=== PATIENT | male | born 1995 | race Caucasian/White ===

== ENCOUNTER 2017-01-29 19:46 | Emergency (ER) | payer BC ==
[~2017-01-29] VITALS: Ht 175.3 cm; Wt 66.0 kg
[2017-01-29] MEDS ORDERED: SODIUM CHLORIDE 0.9% 1,000 ML IV ONE (20:05)
[2017-01-29] MEDS ORDERED: HYDROmorphone 1 MG/ML, 1ML ONE ×2 (20:10→23:19)
[2017-01-29] MEDS ORDERED: ONDANSETRON 2MG/ML, 2ML ONE ×2 (20:10→23:19)
[2017-01-29 20:26] LABS: HEMOGLOBIN 17.1 g/dL (13.7-18.0); WHITE BLOOD COUNT 13.8 x10^3/uL (4.5-13.2)
[2017-01-29] MEDS ORDERED: HYDROmorphone 1 MG/ML, 1ML IVPush PRN (20:30)
[2017-01-29] MEDS ORDERED: ONDANSETRON 2MG/ML, 2ML IVPush ONE (20:30)
[2017-01-29] MEDS ORDERED: SODIUM CHLORIDE 0.9% 1,000ML IVBOLUS ONE (20:30)
[2017-01-29 20:35] LABS: ASPARTATE AMINO TRANSFERASE 22 U/L (15-37); BLOOD UREA NITROGEN 15 mg/dL (7-18)
[2017-01-29] MEDS ORDERED: OMNIPAQUE 350 MG/ML, 100ML BOTTLE ONE (20:54)
[2017-01-29 23:36] VITALS: BP 121/77
== END 2017-01-29 23:59 | disposition home or self-care (01) ==
LOC: ED 23:47
DX: R10.84 Generalized abdominal pain (principal)
CPT/HCPCS: 36415; 74177; 80053; 81003; 83690; 85025; 93005; 96361; 96374; 96375; 99285; J1170; J2405; J7030; Q9967

== ENCOUNTER 2017-01-31 09:31 | Day surgery (SDC) | payer BC ==
[~2017-01-31] VITALS: Ht 177.8 cm; Wt 72.8 kg
[2017-01-31] MEDS ORDERED: ONDANSETRON 2MG/ML, 2ML IVPush ONE (10:30)
[2017-01-31] MEDS ORDERED: SODIUM CHLORIDE 0.9% 1,000ML IVBOLUS ONE (10:30)
[2017-01-31] MEDS ORDERED: SODIUM CHLORIDE FLUSH 10ML SYR IVF ONE (10:30)
[2017-01-31] MEDS ORDERED: MORPHINE SULFATE 4 MG/ML, 1ML IVPush PRN (10:30)
[2017-01-31 10:41] LABS: HEMATOCRIT 46.7 % (39.2-51.8); HEMOGLOBIN 15.9 g/dL (13.7-18.0); WHITE BLOOD COUNT 20.5 x10^3/uL (4.5-13.2)
[2017-01-31 10:46] LABS: BLOOD UREA NITROGEN 12 mg/dL (7-18)
[2017-01-31] MEDS ORDERED: OMNIPAQUE 350 MG/ML, 100ML BOTTLE ONE (11:48)
[2017-01-31] MEDS ORDERED: SODIUM CHLORIDE 0.9% 1,000 ML IV ONE (11:56)
[2017-01-31] MEDS ORDERED: CEFOTETAN PMX 1GM/50ML 50 ML IV ONE (12:00)
[2017-01-31] MEDS ORDERED: SODIUM CHLORIDE FLUSH 10ML SYR IVF PRN (12:00)
[2017-01-31] MEDS ORDERED: CEFOTETAN PMX 1GM/50ML 50 ML ONE (12:49)
[2017-01-31] MEDS ORDERED: MORPHINE SULFATE 4 MG/ML, 1ML ONE (13:58)
[2017-01-31] MEDS ORDERED: ONDANSETRON 2MG/ML, 2ML ONE (13:58)
[2017-01-31 15:15] VITALS: BP 108/63
[2017-01-31] MEDS ORDERED: BUPIVACAINE/PF 0.5% ONE (15:53)
[2017-01-31] MEDS ORDERED: EPINEPHRINE 1 MG/ML, 1ML ONE (15:53)
[2017-01-31] MEDS ORDERED: MIDAZOLAM 1 MG/ML, 2ML ONE (17:37)
[2017-01-31] MEDS ORDERED: FENTANYL PF 100 MCG/2ML ONE ×2 (17:37→18:43)
[2017-01-31] MEDS ORDERED: CEFOTETAN 1 GM ONE (17:51)
[2017-01-31] MEDS ORDERED: ROCURONIUM 10 MG/ML ONE (17:51)
[2017-01-31] MEDS ORDERED: PROPOFOL 10 MG/ML, 50ML ONE (17:51)
[2017-01-31] MEDS ORDERED: GLYCOPYRROLATE 0.2MG/1ML, 5ML ONE (17:51)
[2017-01-31] MEDS ORDERED: NEOSTIGMINE 1 MG/ML, 10ML ONE (17:51)
[2017-01-31] MEDS ORDERED: LIDOCAINE-MPF 2% ,5ML ONE (17:51)
[2017-01-31] MEDS ORDERED: MEPERIDINE/PF 25MG/0.5ML ONE (18:43)
[2017-01-31] MEDS ORDERED: ACETAMINOPHEN 325 MG TABLET PO PRN (19:00)
[2017-01-31] MEDS ORDERED: FENTANYL PF 100 MCG/2ML IV PRN (19:00)
[2017-01-31] MEDS ORDERED: HYDROmorphone 1 MG/ML, 1ML IV PRN (19:00)
[2017-01-31] MEDS ORDERED: PROMETHAZINE 25 MG/ML, 1ML IV PRN (19:00)
[2017-01-31] MEDS ORDERED: KETOROLAC 30 MG/1 ML IV PRN (19:00)
[2017-01-31] MEDS ORDERED: OXYcodone 5 MG/5 ML ORAL.SOL UDC PO PRN (19:00)
[2017-01-31] MEDS ORDERED: MEPERIDINE/PF 25MG/0.5ML IVPush PRN (19:00)
[2017-01-31 20:15] VITALS: BP 116/73
[2017-01-31] MEDS ORDERED: ONDANSETRON 4 MG TABLET PO PRN (20:30)
[2017-01-31] MEDS ORDERED: OXYcodone/APAP 5/325MG TABLET PO PRN (20:30)
[2017-01-31] MEDS ORDERED: DIPHENHYDRAMINE 25 MG CAPSULE PO PRN (20:30)
[2017-02-01 01:12] VITALS: BP 101/52
[2017-02-01 04:00] VITALS: BP 107/58
[2017-02-01 06:51] VITALS: BP 109/67
[2017-02-01] MEDS ORDERED: POLYETHYLENE GLYCOL 17 GM PACKET PO SCH (09:00)
[2017-02-01 10:17] VITALS: BP 112/70
[2017-02-01] MEDS ORDERED: POLY17PO5 PO (11:24)
[2017-02-01] MEDS ORDERED: OXYC-302 PO (11:24)
== END 2017-02-01 11:40 | disposition home or self-care (01) ==
LOC: OR 11:55 → EDIP 11:56 → OR 11:56 → UNDOADMIN 11:56 → OR 12:02 → EDIP 14:42 → 4NOR 14:42 → DCLOUNGE 02-01 11:20 → UNDODISIN 02-01 11:40 → OR 02-01 11:40
PROVIDERS: ATTEND Colon & Rectal Surgery
DX: K35.80 Unspecified acute appendicitis (principal); Z79.899 Other long term (current) drug therapy
CPT/HCPCS: 36415; 44970; 74177; 80048; 81001; 82040; 85025; 87086; 88304; 96365; 96375; 99285; J0171; J2175; J2250; J2405; J2704; J2710; J3010; J3490; J7030; Q9967; S0074